=== PATIENT | female | born 2000 | race Two or more races ===

== ENCOUNTER → 2024-08-02 | Outpatient (CLI) | payer OTHER, SELFPAY ==
[2024-08-02 14:18] LABS: Amphetamine/Methamp Scrn,U Negative (Negative); Barbiturate Screen,Urine Negative (Negative); Benzodiazepines Screen,Urine Negative (Negative); Benzoylecgonine Screen, Ur Negative (Negative); Fentanyl Screen,Urine Negative (Negative); Opiate Screen,Urine Negative (Negative); THC Screen,Urine Negative (Negative)
== END | disposition home or self-care (01) ==
PROVIDERS: Referring Provider Physician Assistant; Visit Provider Physician Assistant
DX: Z02.1 Encounter for pre-employment examination (principal)
CPT/HCPCS: 80307

== ENCOUNTER → 2024-10-03 | Outpatient (CLI) | payer OTHER, SELFPAY ==
[2024-10-03 09:59] LABS: Collection Type, Urine Clean Catch
[2024-10-03 10:22] LABS: Basophils # (Auto) 0.1 Thou/mm3 (0.0-0.2); Basophils % (Auto) 1 % (0-2.5); Eosinophils # (Auto) 0.3 Thou/mm3 (0.0-0.5); Eosinophils % (Auto) 3 % (0-10); Hematocrit 35.9 % (36.0-46.0); Hemoglobin 12.1 g/dL (12.0-16.0); Immature Granulocytes % (Auto) 1 % (0-0); Immature Granulocytes Auto 0.06 Thou/mm3 (0.00-0.00); Lymphocytes % (Auto) 54 % (10-50); Mean Corpuscular HGB Conc 33.7 g/dl (31.0-37.0); Mean Corpuscular Hemoglobin 27.2 pg (25.0-35.0); Mean Corpuscular Volume 81 fL (80-100); Monocytes # (Auto) 0.5 Thou/mm3 (0.0-0.8); Monocytes % (Auto) 5 % (0-12); Neutrophils # (Auto) 4.2 Thou/mm3 (1.8-7.7); Neutrophils % (Auto) 37 % (37-80); Nucleated Red Blood Cell % 0 /100 WBC (0); Platelet Count 213 Thou/mm3 (140-440); RDW Standard Deviation 39.6 fL (36.4-46.3); Red Blood Count 4.45 Miln/mm3 (4.00-5.20); White Blood Count 11.2 Thou/mm3 (3.6-11.0)
[2024-10-03 10:24] LABS: Bilirubin,Urine Negative (Negative); Blood,Urine Negative (Negative); Clarity,Urine Clear (Clear/Hazy); Color,Urine Colorless (Lt Yel-Yel); Culture Indicated,Urine Not Indicated; Glucose, Urine Negative (Negative); Ketones,Urine Negative (Negative); Leukocyte Esterase,Urine Negative (Negative); Nitrite,Urine Negative (Negative); PH,Urine 6.5 (5.0-7.0); Protein,Urine Negative (Neg - Trace); RBC,Urine 1 /hpf (0-3); Specific Gravity,Urine 1.012 (1.001-1.035); Squamous Epithelial Cell,Urine 1 /hpf (0-5); Urobilinogen,Urine Negative mg/dL (0.0-1.0); WBC,Urine < 1 /hpf (0-5)
[2024-10-03 10:46] LABS: Vitamin B12 444 pg/mL (211-911); Vitamin D 25 Hydroxy Total 14.9 ng/mL (7.3-40.2)
[2024-10-03 10:56] LABS: Ferritin 16 ng/mL (7.3-270.7)
[2024-10-03 10:58] LABS: Alanine Aminotransferase 12 U/L (10-49); Albumin, Serum 3.9 gm/dL (3.5-5.0); Anion Gap 8 (7-16); Aspartate Amino Transferase < 10 U/L (0-34); BUN/Creatinine Ratio 13 Ratio (12-20); Bilirubin,Total 0.5 mg/dL (0.3-1.2); Blood Urea Nitrogen 12 mg/dL (9-23); Carbon Dioxide 25.6 mMol/L (20.0-31.0); Chloride 103 mMol/L (98-107); Creatinine (Component) 0.9 mg/dL (0.6-1.3); Glucose 87 mg/dL (74-106); Osmolality,Calculated 272 (275-295); Sodium 137 mMol/L (136-145); Total Protein 6.4 gm/dL (5.7-8.2); eGFR > 60 See Note
[2024-10-03 10:59] LABS: Albumin/Globulin Ratio 1.6 (1.2-2.2); Alkaline Phosphatase 50 U/L (46-116); Calcium (Corrected) 9.1 mg/dL (8.5-10.1); Cardiac Risk Estimate 2.6 RATIO (3.7-5.6); Cholesterol 138 mg/dL (132-200); Globulin 2.5 gm/dL (2.3-3.5); HDL Cholesterol 54 mg/dL (40-60); LDL Cholesterol,Calculated 59 mg/dL (0-130); Triglycerides 126 mg/dL (30-150)
[2024-10-03 11:06] LABS: Iron 47 mcg/dL (50-170)
[2024-10-03 11:08] LABS: Glucose Estimated Average 100 mg/dL (80-131); Hemoglobin A1C 5.1 % Hgb (4.8-6.0)
== END | disposition home or self-care (01) ==
PROVIDERS: PCP Family Medicine; Referring Provider Physician Assistant; Visit Provider Physician Assistant
DX: Z00.00 Encounter for general adult medical examination without abnormal findings (principal)
CPT/HCPCS: 36415; 80053; 80061; 81001; 82306; 82607; 82728; 83036; 83540; 84443; 85025

== ENCOUNTER 2025-02-28 23:36 | Emergency (ER) | payer OTHER, SELFPAY ==
[2025-03-01 00:20] VITALS: BP 113/75; PULSE 104; RESP 16; TEMP 36.9; O2SAT 100; BMI 27.4
--- NOTE | 2025-03-01 00:46 | PD.EDABDPN ---
ED Abdominal Pain RME/HPI General Chief Complaint: Abdominal Pain Stated complaint: ABD PAIN, CONSTIPATION Time seen by provider: 03/01/25 00:30 Arrival date/time: 02/28/25 23:36 RME / HPI RME / HPI narrative: DR. BOWMAN MAIN ED EVALUATION: 24 y/o female with Hx of Constipation presents to ED BIB mother c/o constipation and rectal pain x 1 week. Patient reports spending 1.5 hours in the restroom with the urge to go, but being extremely painful and tight. She admits to passing gas. States she now feels as if she could have a bowel movement but is afraid of experiencing pain again. Patient also recently finished antibiotic regimen. Denies fever, nausea, and vomiting. Also denies any abdominal surgeries or any medical history. No other concerns or complaints expressed at this time. Related Data Previous Rx's ?Medication ?Instructions ?Recorded bisacodyl 10 mg rectal suppository 10 mg ID QDAY PRN constipation #3 03/01/25 (Dulcolax (bisacodyl)) ea polyethylene glycol 3350 17 17 g PO QDAY 14 days #238 grams 03/01/25 gram/dose oral powder (Miralax) Allergies Allergy/AdvReac Type Severity Reaction Status Date / Time No Known Allergies Allergy Verified 03/01/25 02:43 Review of Systems Review of Systems Systems Reviewed: All systems reviewed, normal except as documented Past Medical History Past Medical History GASTROINTESTINAL: Positive Gastrointestinal Disorders (Constipation) Social History SMOKING STATUS: Never smoker ED Exam Narrative Physical exam: GEN. APPEARANCE: The patient is alert awake oriented X-3 in no distress, lying down comfortably, does not look ill/toxic. Patient has good eye contact. Patient is cooperative. VITALS: All vitals were reviewed and the pulse ox is 100% on room air which is normal according to my interpretation. HEENT: Normocephalic, atraumatic. Pupils are equal and reactive. Oral mucosa is moist. Patent Nares NECK: Supple, nontender, no thyromegaly, no meningismus, no JVD CHEST: Symmetrical, atraumatic, and with equal expansion , Nontender on palpation no deformity and no crepitus. CARDIOVASCULAR: Heart regular rhythm no murmur or gallop rub or extra beats. LUNGS: Clear to auscultation bilaterally with symmetrical chest rise. No laboring tachypnea or wheezing. No intercostal subcostal retraction. No rales and no rhonchi. ABDOMEN: Soft, flat, nontender to palpation, no guarding or rebound tenderness. There are no abnormal masses palpated. Active and normal bowel sounds. EXTREMITIES: Nontender. No edema. No cyanosis. Patient is able to move all 4 extremities well, with full ROM and good CSM. SKIN: Warm and dry, no jaundice or rashes noted. NEURO: Patient is CORTEZ x 4, Cranial nerves II through XII grossly intact. There is no focal neurologic deficits noted. GCS is 15, PNS and OIL PROCESS STILLMAN appear grossly intact. PSYCHIATRIC: Patient is in normal mood and affect. Course Quality Measures none Orders Category Date Time Status KUB [XR abdomen 1V] Stat Exams 03/01/25 00:48 Taken HCG Qualitative,Urine Stat Lab 03/01/25 01:26 Completed Ketorolac Inj [Toradol Inj] Med 03/01/25 00:48 Discontinued 15 mg IM X1 ONE Magnesium Citrate Liqd [Citrate of Magnesia Liqd] Med 03/01/25 02:39 Discontinued 150 ml PO X1 ONE Vital Signs Vital signs: Vital Signs Temperature 98.5 F 03/01/25 00:20 Pulse Rate 104 H 03/01/25 00:20 Respiratory Rate 16 03/01/25 00:20 Blood Pressure 113/75 03/01/25 00:20 Pulse Oximetry (%) 100 03/01/25 00:20 Oxygen Delivery Method Room Air 03/01/25 00:20 Abdominal Pain MDM MDM Narrative MDM Narrative:: Scribe Attestation: IDonan, am scribing for and in the presence of Dr. Bowman. Provider Notation: Although this document has been carefully reviewed, there may still be some phonetic and other typographical errors.? These errors are purely grammatical due to imperfections in the software program and should not be construed in any way to? compromise the substance of the patient's medical care during this visit. Patent's abdomen x-ray shows that she is constipated. Patient will be treated with bowel regimen. Patient data External records reviewed:: [facility] previous records (No prior ED records available for review.) Clinical information provided by:: patient and parent (Mother) Social determinants that could affect healthcare access:: none Patient has the following chronic illnesses:: Constipation How is presenting disease/condition affected by chronic disease/condition?: exacerbated by Evaluation data The following diagnostics were reviewed and interpreted by me:: lab results and radiology exam(s) Lab and/or radiology exams considered but not ordered:: None Interpretation Summary: RADIOLOGY KUB X-Ray: Pending official radiology report. Medications / Prescriptions Medications or Prescriptions considered but not ordered:: None Medication administrations:: Medication Administration History Discontinued Medications Ketorolac Tromethamine (Ketorolac Inj 60 Mg/2 Ml Vial) 15 mg IM X1 ONE Stop: 03/01/25 00:49 Last Admin: 03/01/25 03:02 Dose: 15 mg Documented By: SIMI Magnesium Citrate (Magnesium Citrate 300 Ml Btl) 150 ml PO X1 ONE Stop: 03/01/25 02:40 Last Admin: 03/01/25 03:02 Dose: 150 ml Documented By: SIMI See above if any Consultations Consultation(s) initiated? (list below): No Diagnosis Differential diagnosis abdominal pain: abdominal pain, acute appendicitis, constipation, diverticulitis, endometriosis, gastroenteritis and small bowel obstruction Most likely diagnosis given after review of the tests above:: Constipation Admission Indicated Admission indicated?: not indicated Explain why admission is indicated or not indicated:: Patient does not meet admission criteria Admission Request Was there a request for admission?: No Disposition Plan Disposition Plan: Discharge Discharge Attestation Discharge Attestation: The patient and all family members were given an opportunity to ask questions and understood the discharge instructions. Discharge instructions specifically effects, indications for sooner follow up or return to the emergency department, and the expected course of current diagnosis. Patient condition: Stable Discharge Plan Plan Patient Disposition: HOME (Self Care) Prescriptions/Referrals Prescriptions/Med Rec: New polyethylene glycol 3350 [Miralax] 17 gram/dose powder 17 g PO QDAY 14 Days Qty: 238 0RF bisacodyl [Dulcolax (bisacodyl)] 10 mg suppository 10 mg ID QDAY PRN (Reason: constipation) Qty: 3 0RF Referrals: Anitra Rojas PA-C [Primary Care Provider] - In 1 week Problem List Clinical Impression: Constipation Patient/Caregiver Discharge Instructions Discharge Activity: activity as tolerated Education Materials: Treating Constipation Additional Instructions: If the constipation persists it is important that you discuss with your primary care doctor, and request an evaluation by a vacuum cleaner repair person as an outpatient. Print Language: [place] Stand Alone Forms: Jessica Award Info., Patient Portal Info Letter
--- NOTE | 2025-03-01 00:48 | XR_ITS ---
Examination: Abdomen AP single view Technique: AP portable supine abdomen, single view Exam date and time: March 01 2025 at 0203 hours INDICATIONS: Rectal pain one week. FINDINGS: Moderate stool throughout the colon No obstruction No free air IMPRESSION: Moderate stool throughout the colon
[2025-03-01 01:45] LABS: HCG Qualitative,Urine Negative
[2025-03-01] MEDS: KETOROLAC INJ 60 MG/2 ML VIAL 15 MG IM (03:02)
[2025-03-01] MEDS: MAGNESIUM CITRATE 300 ML BTL 150 ML PO (03:02)
== END 2025-03-01 03:16 | disposition home or self-care (01) ==
PROVIDERS: Emergency Provider Emergency Medicine; PCP Physician Assistant
DX: K59.00 Constipation, unspecified (principal)
CPT/HCPCS: 74018; 81025; 96372; 99283; J1885; A9270

== ENCOUNTER → 2025-06-20 | Outpatient (CLI) | payer OTHER, SELFPAY ==
[2025-06-20 10:27] LABS: Basophils # (Auto) 0.1 Thou/mm3 (0.0-0.2); Basophils % (Auto) 1 % (0-2.5); Eosinophils # (Auto) 0.2 Thou/mm3 (0.0-0.5); Eosinophils % (Auto) 3 % (0-10); Hematocrit 39.4 % (36.0-46.0); Hemoglobin 13.0 g/dL (12.0-16.0); Immature Granulocytes Auto 0.01 Thou/mm3 (0.00-0.00); Lymphocytes # (Auto) 2.2 Thou/mm3 (1.0-4.8); Lymphocytes % (Auto) 29 % (10-50); Mean Corpuscular HGB Conc 33.0 g/dl (31.0-37.0); Mean Corpuscular Hemoglobin 27.0 pg (25.0-35.0); Mean Corpuscular Volume 82 fL (80-100); Monocytes # (Auto) 0.3 Thou/mm3 (0.0-0.8); Monocytes % (Auto) 4 % (0-12); Neutrophils # (Auto) 4.9 Thou/mm3 (1.8-7.7); Neutrophils % (Auto) 63 % (37-80); Nucleated Red Blood Cell # 0.00 Thou/mm3 (0.00-0.00); Nucleated Red Blood Cell % 0 /100 WBC (0); Platelet Count 150 Thou/mm3 (140-440); RDW Standard Deviation 40.5 fL (36.4-46.3); Red Blood Count 4.82 Miln/mm3 (4.00-5.20); White Blood Count 7.7 Thou/mm3 (3.6-11.0)
[2025-06-20 10:43] LABS: Vitamin D 25 Hydroxy Total 26.2 ng/mL (7.3-40.2)
[2025-06-20 10:44] LABS: Ferritin 16 ng/mL (7.3-270.7); Iron 48 mcg/dL (50-170)
[2025-06-20 10:51] LABS: Glucose Estimated Average 100 mg/dL (80-131); Hemoglobin A1C 5.1 % Hgb (4.8-6.0)
== END | disposition home or self-care (01) ==
LOC: COPL 08:51
PROVIDERS: PCP Family Medicine; Referring Provider Physician Assistant; Visit Provider Physician Assistant
DX: Z01.83 Encounter for blood typing (principal); D72.829 Elevated white blood cell count, unspecified; D50.9 Iron deficiency anemia, unspecified; R73.01 Impaired fasting glucose; R11.0 Nausea; E55.9 Vitamin D deficiency, unspecified
CPT/HCPCS: 36415; 82306; 82728; 83013; 83014; 83036; 83540; 85025; 86850; 86870; 86900; 86901